=== PATIENT | female | born 2000 | race Caucasian/White ===

== ENCOUNTER 2019-04-24 13:31 | Emergency (ER) | payer OTHER, SELFPAY ==
[2019-04-24 13:55] VITALS: BP 112/74; PULSE 110; RESP 20; TEMP 37.6; O2SAT 100
--- NOTE | 2019-04-24 14:19 | ED.SKABFB ---
HPI - Skin/Abscess/Foreign Bdy General Chief complaint: Skin/Abscess/Foreign Body Stated complaint: Swelling/Numbness bilateral hand Time Seen by Provider: 04/24/19 14:20 Source: patient and RN notes reviewed Mode of arrival: ambulatory Limitations: no limitations History of Present Illness HPI narrative: 18 year old female who presents to [facility] care with complaints of shooting methamphetamine into her left forearm yesterday and stating that she experienced pain immediately to area where she missed vein. Today states that she has some numbness to her fingers on left hand with strong pulse noted to left radial area and brisk capillary refill to finger nailbeds noted. Patient has firm raised area under skin mid left forearm area that is tender to palpation, patient denies any known fevers chills or sweats. Patient states that she was clean for 10 months and then relapsed 2 months ago. Patient states that she is planning on going to [facility] on Saturday for intake evaluation to go back to rehab. MD complaint: abscess/boil Onset (ago): day(s) (1) Location: LUE Exacerbating factors: palpation Context: other (shot methamphetamine into left mid forarm thumb side) Associated symptoms: other Treatments prior to arrival: none Related Data Allergies Allergy/AdvReac Type Severity Reaction Status Date / Time amoxicillin Allergy Mild Rash Verified 04/24/19 14:15 Review of Systems Review of Systems: Narrative: CONSTITUTIONAL: Denies fever, chills, or sweats. EYES: Denies visual changes, redness, or discharge. ENT: Denies rhinorrhea, congestion, sore throat, or otalgia. CARDIOVASCULAR: Denies chest pain, palpitations, or edema. RESPIRATORY: Denies cough or dyspnea. GASTROINTESTINAL: Denies abdominal pain, nausea, vomiting, or diarrhea. GENITOURINARY: Denies dysuria or hematuria. SKIN: Palpable firm nodular area to the left forearm which is tender to palpation where patient injected meth MUSCULOSKELETAL: Denies back pain, joint pain, or myalgia. NEUROLOGIC: Denies headache, numbness, or weakness. PSYCHIATRIC:positive anxiety or depression. All systems reviewed & are unremarkable except as noted in HPI and below PMFSH Past Medical History Medical History (Updated 04/27/19 @ 10:35 by Halina Queen NP) Anxiety Drug abuse and dependence Ear infection Surgical History Surgical History (Updated 04/27/19 @ 10:36 by Halina Queen NP) History of placement of ear tubes Social History Social History (Updated 04/27/19 @ 10:34 by Halina Queen NP) Smoking packs per day: 0.5 Smoking cigarettes per day: 10.0 Years smoked: 5 Smoking pack-years: 2.50 Smoking status: Current every day smoker Tobacco type: cigarettes Substance use: current Substance use type: methamphetamine Living arrangements: with friend(s) Gender identity (if verbalized by the patient): Female Comments At time of signature agree with nursing documentation of medication reconciliation, past medical, surgical, family, and social history. There is no relevant family history pertinent to presenting complaint. Exam Const: General: no acute distress and alert Nutritional Appearance: thin Orientation/consciousness: patient oriented x3 Other: anxious HENMT: Head: normal to inspection Ears: external ears normal, TM's normal bilaterally and EAC's normal General nose exam: Normal nares present and Nasal discharge present (clear) clear Mouth: Yes moist mucous membranes Throat: posterior oropharynx normal Eyes: Conjunctivae: conjunctivae normal Pupils: Equal, round and reactive pupils present EOM: EOMs intact bilaterally Neck: Neck: normal visual inspection and no lymphadenopathy Chest: Chest palpation & inspection: normal inspection of the chest Resp: Effort & Inspection: normal respiratory effort Auscultation: clear to auscultation bilaterally Cardio: Rate: regular rate Rhythm: regular rhythm GI: Auscultation: normal bowel sounds
== END 2019-04-24 14:38 | disposition home or self-care (01) ==
PROVIDERS: Emergency Provider Registered Nurse
DX: L02.414 Cutaneous abscess of left upper limb (principal); F17.210 Nicotine dependence, cigarettes, uncomplicated
CPT/HCPCS: 99213; G0463

== ENCOUNTER 2019-05-28 17:17 | Emergency (ER) | payer OTHER, SELFPAY ==
[2019-05-28 17:55] VITALS: BP 112/71; PULSE 126; RESP 18; TEMP 37.3; O2SAT 100
--- NOTE | 2019-05-28 18:31 | ED.SKABFB ---
HPI - Skin/Abscess/Foreign Bdy General Chief complaint: Skin/Abscess/Foreign Body Stated complaint: Rash Time Seen by Provider: 05/28/19 18:31 Source: patient and RN notes reviewed Mode of arrival: ambulatory Limitations: no limitations History of Present Illness HPI narrative: 18 year old female who presents to express care with complaints of taking Dose of Bactrim last night that was prescribed for her on the 19 of May by ER doctor for abscess to her left upper arm. Patient states that she developed itchng last night of her skin with full blown rash noted on arms, chest, back, and abdomen today. Patient denies any difficulty with swallowing or any problems with her breathing. Patient admits to continued drug use of methamephetamine with last use this morning. Itching last night and hives today reported by patient with no other verbalized complaints, anxious. MD complaint: rash Onset (ago): day(s) (1) Location: generalized Quality: burning Pain Consistency: constant and other (itching) Relieving factors: none Context: recent antibiotic Associated symptoms: itching Treatments prior to arrival: none Related Data Allergies Allergy/AdvReac Type Severity Reaction Status Date / Time amoxicillin Allergy Mild Rash Verified 05/28/19 17:52 Review of Systems Review of Systems: Narrative: CONSTITUTIONAL: Denies fever, chills, or sweats. EYES: Denies visual changes, redness, or discharge. ENT: Denies rhinorrhea, congestion, sore throat, or otalgia. CARDIOVASCULAR: Denies chest pain, palpitations, or edema. RESPIRATORY: Denies cough or dyspnea. GASTROINTESTINAL: Denies abdominal pain, nausea, vomiting, or diarrhea. GENITOURINARY: Denies dysuria or hematuria. SKIN: Scattered urticaria noted on arms, abdomen,back and chest region with itching MUSCULOSKELETAL: Denies back pain, joint pain, or myalgia. NEUROLOGIC: Denies headache, numbness, or weakness. PSYCHIATRIC:Positive anxiety or depression. All systems reviewed & are unremarkable except as noted in HPI and below PMFSH Past Medical History Medical History Anxiety Drug abuse and dependence Ear infection Surgical History Surgical History History of placement of ear tubes Social History Social History Smoking packs per day: 0.5 Smoking cigarettes per day: 10.0 Years smoked: 5 Smoking pack-years: 2.50 Smoking status: Current every day smoker Tobacco type: cigarettes Substance use: current Substance use type: methamphetamine Gender identity (if verbalized by the patient): Female Comments At time of signature, agree with nursing past medical, social history. There is no relevant family history pertinent to the presenting complaint Exam Narrative: Exam Narrative: GENERAL: Well-appearing, fair nourished, and in no acute distress. HEAD: Normocephalic, atraumatic. EYES: PERRLA and EOMI. ENT: Nares clear, no rhinorrhea or epistaxis. Mucous membranes moist. NECK: Supple.no lymphadenopathy CHEST: Clear to auscultation. No respiratory distress.[id number] on room air HEART: Regular rate and rhythm. No murmur heard. Normal peripheral pulses. ABDOMEN: Soft, nontender, nondistended, normal active bowel sounds. EXTREMITIES: Normal range of motion. No edema. SKIN: Warm, dry,scattered urticaria noted to bilateral arms, chest abdomen and back, lesions of various sizes, do manuel,itchy and burn NEURO: No focal deficits. Alert and oriented x3.anxious Course Vital Signs Vital signs: Vital Signs Temperature 37.3 C 05/28/19 17:55 Pulse Rate 126 H 05/28/19 17:55 Respiratory Rate 18 05/28/19 17:55 Blood Pressure 112/71 05/28/19 17:55 Pulse Oximetry 100 05/28/19 17:55 Temperature 37.3 C 05/28/19 17:55 Pulse Rate 126 H 05/28/19 17:55 Respiratory Rate 18 05/28/19 17:55 Blood Pressur
== END 2019-05-28 18:47 | disposition home or self-care (01) ==
PROVIDERS: Emergency Provider Registered Nurse
DX: L50.0 Allergic urticaria (principal); F17.210 Nicotine dependence, cigarettes, uncomplicated
CPT/HCPCS: 99213; G0463

== ENCOUNTER 2020-02-04 17:15 | Emergency (ER) | payer OTHER, SELFPAY ==
[2020-02-04 17:24] VITALS: BP 121/70; PULSE 111; RESP 18; TEMP 36.9; O2SAT 99
--- NOTE | 2020-02-04 17:40 | ED.GENADULT ---
HPI - General Adult General Chief complaint: Urogenital-Female Stated complaint: std test Time Seen by Provider: 02/04/20 17:40 Source: patient Mode of arrival: ambulatory Limitations: no limitations History of Present Illness HPI narrative: 19-year-old female patient presents to the [facility] with complaints of vaginal itching and discharge and concerned about possible STD. Patient states she has had the symptoms for about 3 to 4 weeks now. Patient states that she recently got out of drug rehab about 2 weeks ago. Patient states that she was sexually active with 2 people one of them that she knew well and had a relationship with another one that she did not know well. Patient is currently 5 months and is due in May. Patient has not yet seen an FLOUR WORKER for her . Patient denies any fevers, body aches or chills. Denies any abdominal pain, nausea, vomiting or diarrhea. Patient states she does have pain with urination at times but nothing consistent. Patient states that her biggest complaint is just the severe vaginal itching. Patient also admits to IV drug use while . Patient does admit that she has shared needles with other people. Related Data Home Medications Medication Instructions Recorded Confirmed melatonin 3 mg PO HS PRN 02/04/20 02/04/20 Allergies Allergy/AdvReac Type Severity Reaction Status Date / Time amoxicillin Allergy Mild Rash Verified 05/28/19 17:52 Review of Systems Review of Systems: Narrative: CONSTITUTIONAL: Denies fever, chills, or sweats. EYES: Denies visual changes, redness, or discharge. ENT: Denies rhinorrhea, congestion, sore throat, or otalgia. CARDIOVASCULAR: Denies chest pain, palpitations, or edema. RESPIRATORY: Denies cough or dyspnea. GASTROINTESTINAL: Denies abdominal pain, nausea, vomiting, or diarrhea. GENITOURINARY: Positive dysuria, denies hematuria. Positive vaginal itching and white vaginal discharge SKIN: Denies rash or itching. MUSCULOSKELETAL: Denies back pain, joint pain, or myalgia. NEUROLOGIC: Denies headache, numbness, or weakness. PSYCHIATRIC: Denies anxiety or depression. [facility] Past Medical History Medical History (Updated 02/04/20 @ 17:57 by MAYA Gregorio) Anxiety Drug abuse and dependence Ear infection Surgical History Surgical History History of placement of ear tubes Social History Social History Smoking packs per day: 0.5 Smoking cigarettes per day: 10.0 Years smoked: 5 Smoking pack-years: 2.50 Smoking status: Current every day smoker Tobacco type: cigarettes Substance use: current Substance use type: methamphetamine Gender identity (if verbalized by the patient): Female Comments At the time of my signature I agree with nursing past medical history, surgical, social, and family history. There is no relevant family history pertinent to the presenting complaint. Exam Narrative: Exam Narrative: GENERAL: Well-appearing, well-nourished, and in no acute distress. HEAD: Normocephalic, atraumatic. EYES: PERRLA and EOMI. ENT: Nares clear, no rhinorrhea or epistaxis. Mucous membranes moist. NECK: Supple. No lymphadenopathy CHEST: Clear to auscultation. No respiratory distress. HEART: Regular rate and rhythm. No murmur heard. Normal peripheral pulses. ABDOMEN: Soft, nontender, nondistended, normal active bowel sounds. No CVA tenderness on percussion : Normal external female genitalia. OS is closed. Patient does have some white milky discharge noted to the canal and around the cervix. Vaginal swab was obtained for gonorrhea and chlamydia. No CVA tenderness to percussion. EXTREMITIES: Normal range of motion. No edema. SKIN: Warm, dry, no rash. NEURO: No focal deficits. Alert and oriented x3. Course Vital Signs Vital signs: Vital Signs Temperature 36.9 C 02/04/20 17:24 Pulse Rate 111 H 1
[2020-02-04] MEDS: AZITHROMYCIN 250 MG TABLET 1000 MG PO (18:00)
[2020-02-04] MEDS: cefTRIAXone 250 MG VIAL IM (18:04)
[2020-02-04] MEDS: LIDOCAINE HCL 1% LOCAL INJ 20 ML VIAL IM (18:06)
== END 2020-02-04 18:26 | disposition home or self-care (01) ==
PROVIDERS: Emergency Provider Nurse Practitioner Family
DX: O99.891 Other specified diseases and conditions complicating pregnancy (principal); Z20.2 Contact with and (suspected) exposure to infections with a predominantly sexual mode of transmission; Z3A.00 Weeks of gestation of pregnancy not specified; O99.332 Smoking (tobacco) complicating pregnancy, second trimester; F17.210 Nicotine dependence, cigarettes, uncomplicated
CPT/HCPCS: 81003; 87086; 87491; 87591; 87661; 96372; 99214; A9270; G0463; J0696

== ENCOUNTER 2020-05-03 10:47 | Emergency (ER) | payer OTHER, SELFPAY | END 2020-05-03 10:59 | disposition left against medical advice (07) | LOC: EXPBETH 10:52 | PROVIDERS: Emergency Provider Nurse Practitioner | DX: Z53.21 Procedure and treatment not carried out due to patient leaving prior to being seen by health care provider (principal) | CPT/HCPCS: 99199 ==

== ENCOUNTER 2020-05-16 08:49 | Outpatient (CLI) | payer OTHER, SELFPAY ==
[2020-05-18 07:52] LABS: Amphetamines negative; Barbiturates negative; Benzodiazepines negative; Cocaine Metabolites negative; Marijuana Metabolites negative; PCP negative
== END 2020-05-16 08:50 | disposition home or self-care (01) ==
PROVIDERS: PCP Obstetrics & Gynecology; Visit Provider Obstetrics & Gynecology
DX: F19.11 Other psychoactive substance abuse, in remission (principal)
CPT/HCPCS: 80307

== ENCOUNTER 2020-05-19 10:06 | Observation (INO) | payer OTHER, SELFPAY ==
--- NOTE | ~2020-05-19 | US_ITS ---
EXAMINATION: US OB BPP wo non-stress EXAM DATE: 05/19/2020 16:40 INDICATION: IUGR; BPP earlier today was 2/8 FAILED BPP. 3rd trimester. TECHNIQUE: Pelvic obstetrical transabdominal sonogram was performed by a technologist. There are mu ltiple grayscale and Doppler images available for interpretation. Comparison is made to prior examina tion from earlier same date. FINDINGS: There is a single fetus identified in breech presentation with a heart rate of 133 beats pe r minute. The placenta is located in the anterior position. There is no sonographic evidence of retr oplacental hemorrhage identified. BIOPHYSICAL PROFILE (performed by the technologist) breathing (30 sec sustained breathing in 30 minutes): 2 out of 2 movement (3 gross body movements in 30 minutes): 2 out of 2 tone (one episode of vrhsnoc-gdlktmjfs-lifbxeq limb movement): 2 out of 2 Amniotic fluid pocket (2 cm): 2 out of 2 Total score: 8 out of 8 IMPRESSION: 1. Single fetus, now breech presentation with heart rate of 133 bpm. 2. Normalization of biophysical profile score of 8 out of 8. Reviewed, dictated and finalized at location B. TAB DEALER
[2020-05-19 13:00] VITALS: BMI 28.2
[2020-05-19] MEDS: BETAMETHASONE SOD PHOS/ACETATE 30 MG/5 ML VIAL 12 MG IM (13:17)
[2020-05-19 13:40] VITALS: BP 85/48; PULSE 87
[2020-05-19 13:46] VITALS: BP 91/53; PULSE 89
[2020-05-19 14:01] VITALS: BP 90/46; PULSE 89
[2020-05-19 14:16] VITALS: BP 90/42; PULSE 91
[2020-05-19 15:01] VITALS: BP 85/47; PULSE 82
--- NOTE | 2020-05-23 06:58 | PM.OBTRLD ---
OB - Triage/Final Diagnosis Visit Information Comments/Additional reasons for admission: I have assessed the risk for this patient, Siri Mercer, and determined that she would benefit from observation care. Final Diagnosis (1) IUGR (intrauterine growth restriction): Status: Acute
== END 2020-05-19 16:57 | disposition home or self-care (01) ==
PROVIDERS: Admitting Provider Obstetrics & Gynecology; Visit Provider Obstetrics & Gynecology
DX: O36.5930 Maternal care for other known or suspected poor fetal growth, third trimester, not applicable or unspecified (principal); Z3A.35 35 weeks gestation of pregnancy
CPT/HCPCS: 76819; 96372; G0378; G0379; J0702

== ENCOUNTER 2020-05-20 13:19 | Outpatient (NON) | payer OTHER, SELFPAY ==
[2020-05-20] MEDS: BETAMETHASONE SOD PHOS/ACETATE 30 MG/5 ML VIAL 12 MG IM (13:42)
== END 2020-05-20 13:20 ==
LOC: ANHOBOP 13:20
PROVIDERS: Visit Provider Obstetrics & Gynecology
DX: O36.5990 Maternal care for other known or suspected poor fetal growth, unspecified trimester, not applicable or unspecified (principal); Z3A.00 Weeks of gestation of pregnancy not specified
CPT/HCPCS: J0702

== ENCOUNTER 2020-05-22 17:06 | Observation (INO) | payer OTHER, SELFPAY ==
[2020-05-22 17:29] VITALS: BP 116/68; PULSE 116
[2020-05-22 17:31] VITALS: BP 112/67; PULSE 111
[2020-05-22 17:46] VITALS: BP 107/62; PULSE 102
[2020-05-22 18:01] VITALS: BP 108/58; PULSE 106
[2020-05-22 18:53] LABS: Add Urine Microscopic? YES; Appearance Urine Cloudy (Clear); Bacteria Urine Trace /hpf; Bilirubin Urine Negative (Negative); Blood Urine Negative (Negative); Color Urine Yellow (Yellow); Glucose Urine UA 1+ mg/dL (Negative); Ketones Urine Negative (Negative); Leukocyte Esterase Ur Trace LEU/UL (Negative); Mucus Urine Few /lpf; Nitrate Urine Negative (Negative); Protein Urine Negative (Negative); Specific Grav Ur 1.013 (1.001-1.035); Squamous Epithelial Cell Urine Many /hpf (Few); Urobilinogen Urine Negative mg/dL (<2.0)
[2020-05-22 19:14] VITALS: BMI 28.0
--- NOTE | 2020-05-22 20:19 | OBADM ---
This patient, Siri Mercer, admitted to the OB room [facility] for observation. Patient/family oriented to hospital policies and general routines including ID bracelet, bed and alarms, visiting hours, pain management, procedures, bathroom and other care routines, personal items, smoking policy, room service/diet, and visiting hours. Patient/Family are encouraged to report perceived risks to care and to ask questions if they do not understand what they are told or what they should do.
--- NOTE | 2020-05-23 07:02 | PM.OBTRLD ---
OB - Triage/Final Diagnosis Visit Information Comments/Additional reasons for admission: I have assessed the risk for this patient, Siri Mercer, and determined that she would benefit from observation care. Evaluation Laboratory results: Laboratory Tests 05/22/20 18:32 Urine Color Yellow Urine Appearance Cloudy H Urine pH 6.0 Ur Specific [place] 1.013 Urine Protein Negative Urine Glucose (UA) 1+ H Urine Ketones Negative Ur Blood (Man) Negative Urine Nitrate Negative Urine Bilirubin Negative Urine Urobilinogen Negative Leukocyte Esterase Rfl Trace H Urine RBC 3-5 H Urine WBC 4-6 H Ur Squamous Epith Cells Many H Urine Bacteria Trace Urine Mucus Few H Vital signs: Vital Signs - 24 hr 05/22/20 17:29 05/22/20 17:31 05/22/20 17:46 Pulse Rate 116 H 111 H 102 H Blood Pressure 116/68 112/67 107/62 05/22/20 18:01 Pulse Rate 106 H Blood Pressure 108/58 L Final Diagnosis (1) Pelvic pressure in : Code(s): O26.899 - Other specified related conditions, unspecified trimester; R10.2 - Pelvic and perineal pain Status: Acute
== END 2020-05-22 19:33 | disposition home or self-care (01) ==
PROVIDERS: Admitting Provider Obstetrics & Gynecology; Visit Provider Obstetrics & Gynecology
DX: O26.893 Other specified pregnancy related conditions, third trimester (principal); R10.2 Pelvic and perineal pain; Z3A.35 35 weeks gestation of pregnancy
CPT/HCPCS: 81001; G0378; G0379

== ENCOUNTER 2020-06-08 12:25 | Outpatient (RCR) | payer OTHER, SELFPAY ==
--- NOTE | 2020-05-09 11:54 | PC.NURSE ---
Dr Denney notified of BPP of 08/30, reactive NST and normal Doppler study. OK to dc home and repeat NST and BPP tomorrow.
[2020-05-09 11:59] VITALS: BP 114/58; PULSE 113
[2020-05-10 11:30] VITALS: BP 90/49; PULSE 98
[2020-05-12 11:53] VITALS: BP 108/57; PULSE 103
[2020-05-16 10:38] VITALS: BP 101/52; PULSE 94
--- NOTE | 2020-05-19 12:26 | PM.OBTRLD ---
OB - Triage/Final Diagnosis Visit Information Comments/Additional reasons for admission: I have assessed the risk for this patient, Siri Mercer, and determined that she would benefit from observation care. BPP was performed this morning, which showed 4/10. 2 for fluid and 2 for reactive NST. Breathing, gross body movements, and tone not identified. Bedside BPP was performed by myself. Breathing, at least 3 gross body movements, and tone (flexion and extension of legs) was noted along with >2cm MVP and a reactive NST. Presentation is transverse. head to maternal left, spine posterior. Plan: - Continuous monitoring - Betamethasone IM for lung maturity - Repeat BPP at 1600 today - Clear fluid diet Discussed possibility of delivery due to status, however bedside scan was reassuring. Risks and benefits of delivery discussed with factors of 35 week gestation, IUGR, as well as mode of delivery of section due to transverse lie. Final Diagnosis (1) IUGR (intrauterine growth restriction): Status: Acute
[2020-05-20 13:44] VITALS: BP 105/47; PULSE 96
[2020-05-23 11:46] VITALS: BP 110/53; PULSE 103
[2020-05-30 12:05] VITALS: BP 107/52; PULSE 108
[2020-06-01 12:55] VITALS: BP 109/61; PULSE 110
--- NOTE | ~2020-06-08 | US_ITS ---
EXAMINATION: US OB BPP wo non-stress DATE: 05/10/2020 11:24 MOTION PICTURE SET UP WORKER INDICATION: Small for gestational age TECHNIQUE: Real-time transabdominal obstetric ultrasound. FINDINGS: Comparison to 05/09/2020 There is a single living fetus in breech presentation. The placenta is anterior without placenta pre via. cardiac activity and movement is noted with a heart rate of 131 beats per minute. Biophysical profile: breathin of 2 movement: 2 of 2 tone: 2 of 2 Amniotic flud pocket: 2 of 2 Total score: 8 of 8 IMPRESSION: 1. Single living intrauterine in breech presentation. 2: Total biophysical profile score of 8/8. Reviewed, dictated and finalized at location A. ON PICTURE SET UP WORKER
--- NOTE | ~2020-06-08 | US_ITS ---
EXAMINATION: US OB BPP wo non-stress, US umbilical doppler EXAM DATE: 05/16/2020 10:22 INDICATION: Small for gestational age. 3rd trimester. TECHNIQUE: Pelvic obstetrical transabdominal sonogram was performed by a technologist. There are mu ltiple grayscale and Doppler images available for interpretation. Comparison is made to prior examina tion from 05/12/2020. FINDINGS: There is a single fetus identified in vertex presentation with a heart rate of 134 beats pe r minute. The placenta is located in the anterior position. There is no sonographic evidence of retr oplacental hemorrhage identified. BIOPHYSICAL PROFILE (performed by the technologist) breathing (30 sec sustained breathing in 30 minutes): 2 out of 2 movement (3 gross body movements in 30 minutes): 2 out of 2 tone (one episode of ksftqrx-vqcwbqqqb-fxpkppk limb movement): 2 out of 2 Amniotic fluid pocket (2 cm): 2 out of 2 Total score: 8 out of 8 UMBILICAL ARTERY DOPPLER Systolic/diastolic ratios obtained as follows: Near baby: 2.4 Mid aspect: 2.2 Near Placenta: 2.2 (The 5th -- 95th percentile range is 2.03-3.40 for 35th week gestation age). IMPRESSION: 1. Single fetus with heart rate of 134 bpm. Vertex presentation. 2. Normal biophysical profile score of 8 out of 8. 3. Normal umbilical artery Doppler ratios. Reviewed, dictated and finalized at location B. TOR SERVICE ASSISTANT IMPRESSION: 1. Single fetus with heart rate of 134 bpm. Vertex presentation. 2. Normal biophysical profile score of 8 out of 8. 3. Normal umbilical artery Doppler ratios.
--- NOTE | ~2020-06-08 | US_ITS ---
EXAMINATION: US OB BPP wo non-stress, US umbilical doppler DATE: 05/12/2020 12:01 INDICATION: Intrauterine growth retardation during third trimester of TECHNIQUE: Real-time pelvic ultrasound was performed. The interpreting radiologist was not present fo r the study. COMPARISON: 05/10/2020 FINDINGS: There is a single living fetus in breech presentation. The placenta is anterior and not low-lying. F etal heart rate is 132 beats per minute (bpm). Biophysical profile performed by the technologist: breathing (30 sec sustained breathing in 30 minutes): 2 out of 2 movement (3 gross body movements in 30 minutes): 2 out of 2 tone (one episode of ccsoqli-oxfductll-ikoscxb limb movement): 2 out of 2 Amniotic fluid pocket (2 cm): 2 out of 2 Total score: 8 out of 8 The umbilical artery demonstrates a peak systolic and diastolic velocity ratio of 3.7at the fetus, 2. 7 in the mid cord and 2.7 near the placenta (5th%-95%: 2.07-3.53 at 34 weeks). IMPRESSION: 1. Single living fetus in breech presentation with heart rate of 132 bpm. 2. Biophysical profile 8 out of 8. 3. Normal umbilical artery Doppler systolic to diastolic ratio with mean of 3.03 with range of 2.7-3. 7, (5th%-95%: 2.07-3.53 cm at 34 weeks estimated gestational age). Reviewed, dictated and finalized at location A. DING TANK HELPER IMPRESSION: 1. Single living fetus in breech presentation with heart rate of 132 bpm. 2. Biophysical profile 8 out of 8. 3. Normal umbilical artery Doppler systolic to diastolic ratio with mean of 3.0 3 with range of 2.7-3.7, (5th%-95%: 2.07-3.53 cm at 34 weeks estimated gestatio nal age).
--- NOTE | ~2020-06-08 | US_ITS ---
EXAMINATION: US OB BPP wo non-stress, US umbilical doppler DATE: 05/09/2020 11:31 (accession [id number]), 05/09/2020 11:32 (accession [id number]) INDICATION: Small for gestational age, third trimester TECHNIQUE: Real-time pelvic ultrasound was performed. The interpreting radiologist was not present fo r the study. COMPARISON: 03/04/2021 FINDINGS: There is a single living fetus in breech presentation. The placenta is anterior. heart rate is 144 beats per minute (bpm). Biophysical profile performed by the technologist: breathing (30 sec sustained breathing in 30 minutes): 0 out of 2 movement (3 gross body movements in 30 minutes): 2 out of 2 tone (one episode of weqnkek-kbddkwjfx-hroalnw limb movement): 2 out of 2 Amniotic fluid pocket (2 cm): 2 out of 2 Total score: 6 out of 8 Umbilical artery pulsed Doppler demonstrates peak systolic to end-diastolic velocity ratios (S/D rati os) of 2.8 near the fetus, 2.3 in the mid cord, and 2.4 near the placenta (5th percentile = 2.1, 95th percentile = 3.5). IMPRESSION: 1. Single living fetus in breech presentation. 2. Biophysical profile 6 out of 8. Sustained breathing not observed. 3. Normal umbilical artery Doppler. Reviewed, dictated and finalized at location A. TESTER IMPRESSION: 1. Single living fetus in breech presentation. 2. Biophysical profile 6 out of 8. Sustained breathing not observed. 3. Normal umbilical artery Doppler.
--- NOTE | ~2020-06-08 | US_ITS ---
EXAMINATION: US OB BPP wo non-stress EXAM DATE: 06/01/2020 13:01 INDICATION: Small for gestational age. 3rd trimester. TECHNIQUE: Pelvic obstetrical transabdominal sonogram was performed by a technologist. There are mu ltiple grayscale and Doppler images available for interpretation. Comparison is made to prior examina tion from 05/26/2020. FINDINGS: There is a single fetus identified in vertex presentation with a heart rate of 134 beats pe r minute. The placenta is located in the anterior position. There is no sonographic evidence of retr oplacental hemorrhage identified. BIOPHYSICAL PROFILE (performed by the technologist) breathing (30 sec sustained breathing in 30 minutes): 2 out of 2 movement (3 gross body movements in 30 minutes): 2 out of 2 tone (one episode of ugjarmk-wksnqkozt-ichkmkv limb movement): 2 out of 2 Amniotic fluid pocket (2 cm): 2 out of 2 Total score: 8 out of 8 IMPRESSION: 1. Single fetus with heart rate of 134 bpm. 2. Normal biophysical profile score of 8 out of 8. Reviewed, dictated and finalized at location B. TURNING LATHE OPERATOR
--- NOTE | ~2020-06-08 | US_ITS ---
EXAMINATION: 1. US OB BPP wo non-stress 2. US umbilical doppler DATE: 06/08/2020 13:43 INDICATION: Small for gestational age. TECHNIQUE: Real-time pelvic ultrasound was performed. COMPARISON: Ultrasound 06/01/2020 FINDINGS: There is a single living fetus in vertex presentation. The placenta is anterior. heart rate is 150 beats per minute (bpm). Biophysical profile performed by the technologist: breathing (30 sec sustained breathing in 30 minutes): 2 out of 2 movement (3 gross body movements in 30 minutes): 2 out of 2 tone (one episode of ccoltgs-pkzcokptc-blwlpoe limb movement): 2 out of 2 Amniotic fluid pocket (2 cm): 2 out of 2 Total score: 8 out of 8 Umbilical artery pulsed Doppler demonstrates a peak systolic to end-diastolic velocity ratio (S/D rat io) of 2.7 (5th percentile = 1.94, 95th percentile = 3.18). IMPRESSION: 1. Single living fetus in vertex presentation. 2. Biophysical profile 8 out of 8. 3. Normal umbilical artery Doppler. Reviewed, dictated and finalized at location A. IMPRESSION: 1. Single living fetus in vertex presentation. 2. Biophysical profile 8 out of 8. 3. Normal umbilical artery Doppler.
--- NOTE | ~2020-06-08 | US_ITS ---
EXAMINATION: US OB BPP wo non-stress, US umbilical doppler EXAM DATE: 05/19/2020 11:26 INDICATION: IUGR,biophysical profile, umbilical artery Doppler requested. 3rd trimester. TECHNIQUE: Pelvic obstetrical transabdominal sonogram was performed by a technologist. Umbilical art steve Doppler. There are multiple grayscale and Doppler images available for interpretation. Comparison is made to prior examination from 05/16/2020. FINDINGS: There is a single fetus identified in transverse presentation with a heart rate of 135 beat s per minute. The placenta is located in the anterior position. There is no sonographic evidence of retroplacental hemorrhage identified. There is subjectively expected amount of amniotic fluid. BIOPHYSICAL PROFILE (performed by the technologist) breathing (30 sec sustained breathing in 30 minutes): 0 out of 2 movement (3 gross body movements in 30 minutes): 0 out of 2 tone (one episode of ltlxotq-yuuhnbkpp-tznkgje limb movement): 0 out of 2 Amniotic fluid pocket (2 cm): 2 out of 2 Total score: 2 out of 8 Technologist reported baby demonstrated breathing for about 5, not 30 seconds, and one movement not 3 . UMBILICAL ARTERY DOPPLER Systolic/diastolic ratios obtained as follows: Near baby: 2.8 Mid aspect: 2.4 Near Placenta: 2.2 (The 5th -- 95th percentile range is 2.0 -- 3.4). IMPRESSION: 1. Single fetus, now transverse presentation, with heart rate of 135 bpm. 2. Abnormal BPS 2/8. 3. Normal umbilical artery Doppler ratios. I discussed change in position, abnormal BPS with Raf Denney DO at 05/19/2020 11:35 ACUTE CARE ASSISTANT. Reviewed, dictated and finalized at location B. E CARE ASSISTANT IMPRESSION: 1. Single fetus, now transverse presentation, with heart rate of 135 bpm. 2. Abnormal BPS 2/8. 3. Normal umbilical artery Doppler ratios. I discussed change in position, abnormal BPS with Raf Denney DO at 2/2 07/2020 11:35 ACUTE CARE ASSISTANT. IMPRESSION: 1. Single fetus, now transverse presentation, with heart rate of 135 bpm. 2. Abnormal BPS 05/02. 3. Normal umbilical artery Doppler ratios. I discussed change in position, abnormal BPS with Raf Denney DO at 04/26 11:35 ACUTE CARE ASSISTANT.
--- NOTE | ~2020-06-08 | US_ITS ---
EXAMINATION: US OB BPP wo non-stress EXAM DATE: 05/26/2020 12:02 INDICATION: SGA. 3rd trimester. TECHNIQUE: Pelvic obstetrical transabdominal sonogram was performed by a technologist. There are mu ltiple grayscale and Doppler images available for interpretation. Comparison is made to prior examina tion from 05/19/2020. FINDINGS: There is a single fetus identified in vertex presentation (was breech on prior study) with a heart rate of 142 beats per minute. The placenta is located in the anterior position. There is no sonographic evidence of retroplacental hemorrhage identified. BIOPHYSICAL PROFILE (performed by the technologist) breathing (30 sec sustained breathing in 30 minutes): 2 out of 2 movement (3 gross body movements in 30 minutes): 2 out of 2 tone (one episode of zpkkfio-rxhxoktrb-vkhjymp limb movement): 2 out of 2 Amniotic fluid pocket (2 cm): 2 out of 2 Total score: 8 out of 8 IMPRESSION: 1. Single fetus, now vertex presentation with heart rate of 142 bpm. 2. Normal biophysical profile score of 8 out of 8. Reviewed, dictated and finalized at location A. ROP SYSTEMS TECHNICIAN
--- NOTE | ~2020-06-08 | US_ITS ---
EXAMINATION: US OB BPP wo non-stress, US umbilical doppler DATE: 05/05/2020 13:17 DIGITAL MEDIA BUYER INDICATION: Small for gestational age TECHNIQUE: Real-time transabdominal obstetric ultrasound. FINDINGS: No prior studies for comparison. There is a single living fetus in transverse presentation. The placenta is anterior without placenta previa. cardiac activity and movement is noted with a heart rate of 139 beats per minute. Biophysical profile: breathin of 2 movement: 2 of 2 tone: 2 of 2 Amniotic flud pocket: 2 of 2 Total score: 8 of 8 Umbilical artery pulsed Doppler demonstrates peak systolic to end-diastolic velocity ratios (S/D rati os) of 2.8 near the fetus, 4.5 in the mid cord, and 5 near the placenta (5th percentile = 2.11, 95th percentile = 3.67). IMPRESSION: 1. Single living intrauterine in transverse presentation. 2: Total biophysical profile score of 8/8. 3: Elevated umbilical systolic/diastolic velocity ratios. Reviewed, dictated and finalized at location B. TAL MEDIA BUYER IMPRESSION: 1. Single living intrauterine in transverse presentation. 2: Total biophysical profile score of 8/8. 3: Elevated umbilical systolic/diastolic velocity ratios.
[2020-06-08 14:00] VITALS: BP 106/62; PULSE 115
== END 2020-06-24 15:23 | disposition home or self-care (01) ==
LOC: ANHOBOP 12:25
PROVIDERS: Visit Provider Obstetrics & Gynecology
DX: O36.5930 Maternal care for other known or suspected poor fetal growth, third trimester, not applicable or unspecified (principal); Z3A.33 33 weeks gestation of pregnancy; Z3A.34 34 weeks gestation of pregnancy; O36.0930 Maternal care for other rhesus isoimmunization, third trimester, not applicable or unspecified; Z3A.35 35 weeks gestation of pregnancy; Z3A.36 36 weeks gestation of pregnancy
CPT/HCPCS: 59025; 76819; 76820; J0702

== ENCOUNTER 2020-06-16 00:01 | Inpatient (IN) | payer OTHER, SELFPAY ==
[2020-06-16] VITALS (151 sets, daily range): BP systolic 79–124; BP diastolic 27–79; PULSE 51–137; RESP 18–20; TEMP 36.5–38.5; O2SAT 86–100; BMI 28.0
--- NOTE | 2020-06-16 01:02 | WPDANESEPP ---
Anes - Eval Pre Procedure Procedure: labor epidural Date/Time: 06/16/20 01:02 Surgeon: Олег Pre Op Diagnosis: IOL Patient Data Age: 19 Gender: F Height: Weight: Allergies Allergy/AdvReac Type Severity Reaction Status Date / Time amoxicillin Allergy Mild Rash Verified 05/28/19 17:52 Home Medications Medication Instructions Recorded Confirmed Type PNV #[id number] acid-dha 1 cap PO DAILY 30 Days #30 cap 02/04/20 06/08/20 Rx Patient hx anesthesia problems: none Family hx anesthesia problems: none PMFSH Past Medical History Medical History (Updated 05/23/20 @ 07:02 by Raf Denney DO) Anxiety Drug abuse and dependence Ear infection Surgical History Surgical History History of placement of ear tubes Social History Social History Smoking packs per day: 0.5 Smoking cigarettes per day: 10.0 Years smoked: 5 Smoking pack-years: 2.50 Smoking status: Current every day smoker Tobacco type: cigarettes Substance use: former Substance use type: methamphetamine Other substance usage details: Clean since December 2019 Gender identity (if verbalized by the patient): Female Spiritual care concerns: No Exam Day of Procedure 06/16/20 01:02
[2020-06-16 01:12] LABS: Basophils Absolute Auto 0.1 K/mm3 (0.0-0.1); Basophils Percent Auto 0.6 % (0.2-1.2); Eosinophils Absolute Auto 0.1 K/mm3 (0-0.3); Hematocrit 34.8 % (37.0-47.0); Immature Granulocyte Absolute 0.31 K/mm3 (0.00-0.031); Immature Granulocyte Percent A 2.6 % (0-0.5); Lymphocytes Absolute Auto 3.38 K/mm3 (0.9-3.2); Mean Corpuscular HGB Conc 34.5 g/dl (32-36); Mean Corpuscular Hemoglobin 32.1 pg (26-34); Mean Platelet Volume 10.7 fl (7.4-10.4); Monocytes Absolute Auto 1.1 K/mm3 (0.1-0.6); Monocytes Percent Auto 9.4 % (2.6-8.5); Neutrophils Percent Auto 58.4 % (45.5-73.1); Platelet Count Result 230 k/mm3 (150-375); Red Blood Count 3.74 M/mm3 (4.2-5.4); Red Cell Distribution Width 13.2 % (11.5-14.5); White Blood Count 12.1 K/mm3 (4.5-10.0)
[2020-06-16] MEDS: DINOPROSTONE 10 MG VAG INSERT VAGINAL (01:33)
--- NOTE | 2020-06-16 04:53 | LDADM ---
This patient, Siri Mercer, was admitted to Labor/Delivery/Recovery 107 on 06/16/20 at 00:01. Plans for labor, pain management and were discussed with patient. Patient/family oriented to hospital policies and general routines including ID bracelet, bed and alarms, visiting hours, pain management, procedures, bathroom and other care routines, personal items, smoking policy, room service/diet and guest tray routines, security routines, and visiting hours. Patient/Family are encouraged to report perceived risks to care and to ask questions if they do not understand what they are told or what they should do. See OBIX for further documentation.
[2020-06-16 07:09] LABS: Rapid Plasma Reagin Non-Reactive (NonReactive)
[2020-06-16 10:26] LABS: Amphetamine Screen Urine Negative (Negative); Barbiturate Screen Urine Negative (Negative); Benzodiazepines Screen Urine Negative (Negative); Cannabinoid Screen Urine Negative (Negative); Cocaine Screen Urine Negative (Negative); Methadone Screen Urine Negative (Negative); Opiate Screen Urine Negative (Negative); Phencyclidine Screen Urine Negative (Negative)
--- NOTE | 2020-06-16 12:24 | PM.IMHP ---
H&P: HPI History of Present Illness Date/Time: 06/16/20 12:24 19yo at 39w0d here for induction of labor secondary to IUGR. She states she is starting to feel some cramping contractions. But otherwise is doing well. Chief Complaint: Scheduled induction of labor Review of Systems Constitutional: Constitutional: Reports no additional constitutional complaints Cardiovascular: Cardiovascular: Reports no additional cardiovascular complaints Respiratory: Respiratory: Reports no additional respiratory complaints Gastrointestinal: Gastrointestinal: Reports no additional gastrointestinal complaints Genitourinary: Genitourinary: Reports no additional female genitourinary complaints Musculoskeletal: Musculoskeletal: Reports no additional musculoskeletal complaints Integumentary/Breasts: Skin/Breast: Reports system reviewed and no additional complaints, except as docu Neurologic: Reports system reviewed and no additional complaints, except as documented Psychiatric: Psychiatric: Reports no additional psychiatric complaints Endocrine: Endocrine: Reports no additional endocrine complaints Hematologic/Lymphatic: Hematologic/Lymphatic: Reports no additional hematologic/lymphatic complaints Allergic/Immunologic: Allergic/Immunologic: Reports no additional allergic/immunologic complaints [facility] Past Medical History Medical History (Updated 06/16/20 @ 12:31 by Raf Denney DO) Anxiety Drug abuse and dependence Ear infection Surgical History Surgical History History of placement of ear tubes Social History Social History Smoking packs per day: 0.5 Smoking cigarettes per day: 10.0 Years smoked: 6 Smoking pack-years: 3.00 Smoking status: Current every day smoker Tobacco type: cigarettes Substance use: former Substance use type: methamphetamine Other substance usage details: Clean since December 2019 Gender identity (if verbalized by the patient): Female Spiritual care concerns: No Meds Home Medications and Allergies Home Medications Medication Instructions Recorded Confirmed Type PNV #[id number] acid-dha 1 cap PO DAILY 30 Days #30 cap 02/04/20 06/08/20 Rx Allergies Allergy/AdvReac Type Severity Reaction Status Date / Time amoxicillin Allergy Mild Rash Verified 05/28/19 17:52 Vital Signs Vital Signs - 24 hr 06/16/20 01:49 06/16/20 02:00 06/16/20 02:30 Temperature Pulse Rate 82 78 80 Blood Pressure 98/54 L 88/41 L 93/50 L 06/16/20 03:00 06/16/20 03:30 06/16/20 04:00 Temperature Pulse Rate 82 85 85 Blood Pressure 95/48 L 90/45 L 99/51 L 06/16/20 04:30 06/16/20 09:00 06/16/20 09:06 Temperature 36.6 C Pulse Rate 85 94 Blood Pressure 95/55 L 94/51 L 06/16/20 11:53 06/16/20 12:00 06/16/20 12:15 Temperature Pulse Rate 95 92 102 H Blood Pressure 110/64 109/61 92/51 L Exam Const: General: cooperative, healthy appearing, comfortable, no acute distress, well developed, alert, awake and Physically active; No acute distress HENMT: Head: normocephalic and atraumatic Resp: Effort & Inspection: normal respiratory effort, able to speak in complete sentences, abnormal respiratory pattern and audible wheezes Cardio: Rate: regular rate GI: Inspection: normal to inspection : Manual OB Exam: dilated fingertip, effaced 50% and station high Neuro: General: oriented to person, oriented to place, oriented to time and patient oriented x3 Psych: Appearance: grossly normal Mental Status: mental status grossly normal Speech and movement: Normal speech and movement present Affect: normal affect Attitude: cooperative Thought process: Normal thought process present Thought content: Yes Normal thought content present Insight: Good insight present (Psych) Judgement: Good judgement present (Psych) H&P: Results Labs Labs: Short CBC 06/16
--- NOTE | 2020-06-16 12:32 | WPDHPUPDATE1 ---
History and Physical Update Update Date/Time: 06/16/20 12:32 History and Physical has been reviewed, including an updated exam of the patient. There are NO changes in the patient's condition. Risks, benefits, and alternatives have been discussed and questions answered. Patient agrees to proceed with procedure.
[2020-06-16] MEDS: OXYTOCIN 30 UNITS/NS 500 ML 30 UNITS/500 ML BAG IV CONT (14:08)
[2020-06-16] MEDS: LACTATED RINGERS 1,000 ML 125 ML IV CONT ×2 (14:08→19:37)
--- NOTE | 2020-06-16 17:09 | PM.OBPNVD ---
OB - PN: Subj Subjective Date/time seen: 06/16/20 17:10 Doing well, starting to feel more contractions with pitocin. OB - PN: Obj Data Labs CBC & Chem 7: 06/16/20 00:43 Labs: Laboratory Results - last 24 hr 06/16/20 06/16/20 06/16/20 00:43 00:43 00:43 WBC 12.1 H RBC 3.74 L Hgb 12.0 Hct 34.8 L MCV 93.0 MCH 32.1 MCHC 34.5 RDW 13.2 Plt Count 230 MPV 10.7 H Immature Gran % (Auto) 2.6 H Neut % (Auto) 58.4 Lymph % (Auto) 28.0 [place] % (Auto) 9.4 H Eos % (Auto) 1.0 Baso % (Auto) 0.6 Lymph # (Auto) 3.38 H [place] # (Auto) 1.1 H Eos # (Auto) 0.1 Baso # (Auto) 0.1 Abs Immat Gran (auto) 0.31 H Absolute Neuts (auto) 7.0 H Absolute Nucleated RBC 0.0 Nucleated RBC % 0.0 Urine Opiates Screen Urine Methadone Screen Ur Barbiturates Screen Ur Phencyclidine Scrn Ur Amphetamine Screen U Benzodiazepines Scrn Urine Cocaine Screen U Cannabinoids Screen RPR Non-reactive Blood Type B Positive Antibody Screen Negative 06/16/20 04:58 WBC RBC Hgb Hct MCV MCH MCHC RDW Plt Count MPV Immature Gran % (Auto) Neut % (Auto) Lymph % (Auto) [place] % (Auto) Eos % (Auto) Baso % (Auto) Lymph # (Auto) [place] # (Auto) Eos # (Auto) Baso # (Auto) Abs Immat Gran (auto) Absolute Neuts (auto) Absolute Nucleated RBC Nucleated RBC % Urine Opiates Screen Negative Urine Methadone Screen Negative Ur Barbiturates Screen Negative Ur Phencyclidine Scrn Negative Ur Amphetamine Screen Negative U Benzodiazepines Scrn Negative Urine Cocaine Screen Negative U Cannabinoids Screen Negative RPR Blood Type Antibody Screen OB - PN A/P Assessment and Plan (1) IUGR (intrauterine growth restriction): Status: Acute Assessment and Plan: AROM clear fluid Continue pitocin per protocol Pain management as requested (2) Term : Code(s): Z34.90 - Encounter for supervision of normal , unspecified, unspecified trimester Status: Acute Time Spent With Patient Time: Total time spent is greater than 50% in coordination of care (as documented) at patient's floor/unit and/or counseling patient: Exam : Manual OB Exam: dilated 2 cm (2-3cm), effaced 50% and station (-3) Amniotic Fluid: clear
--- NOTE | 2020-06-16 23:14 | PM.OBPRVD ---
OB - Delivery Note Procedure Delivery date: 06/16/20 Procedure: Normal spontaneous vaginal delivery Intrapartal events: None Induction method: AROM, per pitocin protocol and per cervidil protocol Delivery augmentation: rupture of membranes and pitocin Delivery monitor: external FHT and external uterine Route of delivery: Laceration Description: Perineal - 1st Degree (no repair needed) Specimen: Yes Quantitative Blood Loss (ml): 100 Anesthesia type: Epidural Disposition: floor Narrative: Once she was noted to be complete and ready to push, the labor bed was broken down and legs were placed in stirrups for support. With contractions and maternal efforts, the presented in OP position. The head was delivered. Checked for nuchal cord, nuchal cord x3 noted and reduced . Gentle downward traction was applied and the anterior shoulder delivered without issues, followed by the posterior shoulder and rest of the body. was vigorous and crying, so delayed cord clamping of approximately 1 minute was performed. The cord was clamped and cut. Cord gasses collected. Placenta was delivered spontaneously. IV oxytocin administered and fundal massage applied. Exam was performed to identify any lacerations. Small 1st degree perineal laceration was noted, but hemostatic and thus no repair was needed. repaired with 2-0 Vicryl. Patient tolerated the procedure well. All instrument and sponge counts were correct at the end of the procedure. Baby Date of : 06/16/20 Time of : 22:59 Weeks of gestation at delivery: 39 Infant gender: Female Weight (pounds): 5 Weight (ounces): 15 presentation: vertex position: Right Occiput Posterior Placenta delivery description: Spontaneous cord vessel description: 3 Vessels and Nuchal Cord (x3) score one minute: 9 score five minutes: 9
[2020-06-16] MEDS: OXYTOCIN 30 UNITS/NS 500 ML 30 UNITS/500 ML BAG 125 UNITS IV CONT (23:32)
[2020-06-16] MEDS: ONDANSETRON INJ 4 MG/2 ML VIAL IV PUSH (23:54)
[2020-06-17] VITALS (23 sets, daily range): BP systolic 93–112; BP diastolic 45–71; PULSE 68–115; RESP 16–18; TEMP 36.3–37.5; O2SAT 97–100
[2020-06-17] MEDS: IBUPROFEN 600 MG TABLET PO ×3 (01:45→16:52)
[2020-06-17] MEDS: ACETAMINOPHEN 325 MG TABLET 650 MG PO ×2 (03:15→12:03)
[2020-06-17 03:22] LABS: Hemoglobin 11.7 g/dL (12.0-15.0)
--- NOTE | 2020-06-17 07:37 | WPDANLDPN2 ---
Anes-Prog Note L&D Date/Time: 06/17/20 07:37 Comfortable throughout: labor and delivery Neuraxial method: epidural Epidural/Spinal procedure site: clean & non-tender Neuro status: Neuro function grossly intact. Cardiovascular status: normal Respiratory status: normal Airway patency: baseline Mental status: baseline Post-Op hydration status: normal Vital Signs: Last Vital Signs Temp 36.4 C 06/17/20 03:21 Pulse 96 06/17/20 03:21 Resp 16 06/17/20 03:21 BP 93/50 L 06/17/20 03:21 Pulse Ox 97 06/17/20 03:21 Pain score (VAS): 0 I/O: Intake & Output 06/16/20 06/16/20 06/17/20 15:59 23:59 07:59 Intake Total 1500 Output Total 100 Balance 1400 Post-procedural complaints: none Patient feedback: Patient satisfied with anesthetic care.
[2020-06-17] MEDS: MULTIVIT/MIN/PREN/FOL AC/IRON TABLET 1 TAB PO (08:54)
--- NOTE | 2020-06-17 09:44 | P.PNOB_ITS ---
OB - PN: Subj Subjective Date/time seen: 06/17/20 09:44 19yo s/p on 06/16. Doing well this morning. Pain is well controlled. Lochia is minimal. Breast and bottle feeding. Ambulating. OB - PN: Obj Data Labs CBC & Chem 7: 06/17/20 03:11 Labs: Laboratory Results - last 24 hr 06/16/20 06/17/20 04:58 03:11 Hgb 11.7 L Hct 34.0 L Urine Opiates Screen Negative Urine Methadone Screen Negative Ur Barbiturates Screen Negative Ur Phencyclidine Scrn Negative Ur Amphetamine Screen Negative U Benzodiazepines Scrn Negative Urine Cocaine Screen Negative U Cannabinoids Screen Negative OB - PN A/P Assessment and Plan (1) (normal spontaneous vaginal delivery): Code(s): O80 - Encounter for full-term uncomplicated delivery Status: Acute Assessment and Plan: Routine care Pain management Ambulate DC home tomorrow 06/18 Time Spent With Patient Time: Total time spent is greater than 50% in coordination of care (as do cumented) at patient's floor/unit and/or counseling patient: Exam Const: General: cooperative, healthy appearing, comfortable, no acute distress, alert, awake and Physically active Resp: Effort & Inspection: normal respiratory effort, able to speak in complete sentences, no audible wheezes, no cough, respiratory effort not decreased and not labored Cardio: Rate: regular rate GI: GI Palp: No abdominal tenderness, Yes Soft to palpation, No Tenderness to palpation present (GI) and No Guarding due to palpation present (GI) Other: fundus firm below umbilicus Neuro: General: oriented to person, oriented to place and oriented to time Psych: Appearance: grossly normal Mental Status: mental status grossly normal Affect: normal affect Attitude: cooperative Thought process: Normal thought process present Thought content: Yes Normal thought content present Insight: Good insight present (Psych) Judgement: Good judgement present (Psych)
--- NOTE | 2020-06-17 09:58 | PM.OBDSVD ---
DS: Admitting Diagnosis Admitting Diagnosis Admitting Diagnosis: IUGR Term DS: Discharge Diagnosis Discharge Diagnosis (1) (normal spontaneous vaginal delivery): Code(s): O80 - Encounter for full-term uncomplicated delivery Status: Acute Assessment and Plan: Routine care Pain management Ambulate DC home tomorrow 06/18 OB - DS: Summary OB Procedures : None OB Procedures Intrapartum: Spontaneous Vag Delivery OB Procedures: : None Time Spent with Patient Time attestation: Total time spent providing and/or coordinating discharge services: Exam Const: General: cooperative, healthy appearing, comfortable, no acute distress, well developed, alert, awake and Physically active; No acute distress Orientation/consciousness: oriented to person, oriented to place, oriented to time and patient oriented x3 HENMT: Head: normocephalic and atraumatic Resp: Effort & Inspection: normal respiratory effort, able to speak in complete sentences, abnormal respiratory pattern, no audible wheezes, no cough, respiratory effort not decreased and not labored Cardio: Rate: regular rate GI: Inspection: normal to inspection Other: fundus firm below umbilicus Neuro: General: oriented to person, oriented to place, oriented to time and patient oriented x3 Psych: Appearance: grossly normal Mental Status: mental status grossly normal Speech and movement: Normal speech and movement present Affect: normal affect Attitude: cooperative Thought process: Normal thought process present Insight: Good insight present (Psych) Judgement: Good judgement present (Psych) DS: Data Data Completed and Pending Pending studies at discharge: Pending at discharge 06/17/20 00:46 Surgical [PTH] Routine Labs on day of discharge: Labs from last 24 hours 06/17/20 06/16/20 03:11 04:58 Hgb 11.7 L Hct 34.0 L Urine Opiates Screen Negative Urine Methadone Screen Negative Ur Barbiturates Screen Negative Ur Phencyclidine Scrn Negative Ur Amphetamine Screen Negative U Benzodiazepines Scrn Negative Urine Cocaine Screen Negative U Cannabinoids Screen Negative Discharge Plan Discharge Attending physician on discharge: Raf Denney Consulting providers: Chris Ricardo Discharging Clinician: Raf Denney Patient Disposition: Home, Self-Care Activity: may shower, no straining and pelvic rest Diet: regular Patient Instructions: Antibiotic Form, How to Stop Smoking (GEN), Cigarette Smoking and Your Health (GEN), Secondhand Smoke Exposure in Children (GEN) Stand Alone Forms: General Discharge Information Follow-up/Referrals: Raf Denney, [Physician] - Discharge Medications: New docusate sodium 100 mg Capsule 100 mg PO BID PRN (Reason: Constipation) Qty: 30 RF: 0 ibuprofen 600 mg Tablet 600 mg PO Q6H PRN (Reason: Cramping) Qty: 90 RF: 0 Continued PNV #[id number] acid-dha 35 mg iron-5 mg iron-1 mg capsule 1 cap PO DAILY 30 Days Qty: 30 RF: 0 Date of admission: 06/16/20 00:01 Primary Care Provider: PHYSICIAN,COCOA POWDER MIXER OPERATOR Admitting Provider: Raf Denney Attending physician on admission: Raf Denney Condition: Stable
--- NOTE | 2020-06-17 12:30 | PCCCNOTE ---
Care Coordination. Pt. referred to Care Coordination for history of drug use. Spoke with pt. and FOB at bedside. Pt. lives with her parents and her almost 2 years old son. She reports her mother has custody of son due to her previous meth use. Pt. reports she went to [facility] drug rehab in 2019. She reports not completing program, but hasn't used meth since. Gerri BEVERLY reports 2 negative drug tests from office and negative drug test here on admission for pt. Baby was not tested. Pt. and FOB report they are doing much better and both staying clean. Pt. reports having all necessary baby care items. She has breast pump and is setup with [facility] in [place]. FOB recently out of [facility] and on probation. He reports only a few more visits and he'll be done. Spoke with Hattie Stark from [facility] Hotline ID#[id number] who reports will take pt.'s situation as information only. She reports if something changes, they will notify us if they plan to take a report, but at this time no action needed. Gerri BEVERLY, aware.
--- NOTE | 2020-06-17 13:50 | PC.NURSE ---
Consult with pt., mother reports she plans to pump and bottle feed. Mother attempted to breastfeed with first child and states she did not like and wants to have breastmilk. Mother states pumps at times and plans to begin to pump regularly once home. Discussed stimulation and milk supply. Mother has the [facility] pump at bedside. Reviewed Instructions on breast pump care and usage, pumping schedule, nipple care, and collection and storage of breast milk. Encouraged [id number], breast massage and manual expression to stimulate supply. Assessed patient for correct flange size, placement and draw. Mother choose not to pump. Patient verbalizes and demonstrates understanding of instructions.
--- NOTE | 2020-06-17 13:55 | PC.NURSE ---
Mother reports she has a double electric breastpump for home use.
[2020-06-18] MEDS: IBUPROFEN 600 MG TABLET PO ×2 (00:30→07:55)
[2020-06-18] MEDS: MULTIVIT/MIN/PREN/FOL AC/IRON TABLET 1 TAB PO (07:54)
[2020-06-18] MEDS: DOCUSATE SODIUM 100 MG CAPSULE PO (07:54)
[2020-06-18 08:00] VITALS: BP 120/73; PULSE 71; RESP 18; TEMP 37.1
--- NOTE | 2020-06-18 08:15 | PC.NURSE ---
Patient was given the opportunity to view the discharge video Mother & Baby Care, The First Two Weeks and to ask questions. Patient declined viewing the video and has been given the mother/baby guide for home reference.
--- NOTE | 2020-06-18 08:15 | PC.NURSE ---
Self care and infant care dishcharge instructions given including follow up visit date and time. Parents verbalized understanding. No questions or concerns voiced.
== END 2020-06-18 11:52 | disposition home or self-care (01) | DRG 560 ==
LOC: ANHLDR 14:44 → ANHOB2 06-17 01:42
PROVIDERS: Admitting Provider Obstetrics & Gynecology; Visit Provider Obstetrics & Gynecology
DX: O36.5930 Maternal care for other known or suspected poor fetal growth, third trimester, not applicable or unspecified (principal); Z37.0 Single live birth; Z3A.39 39 weeks gestation of pregnancy; O36.8330 Maternal care for abnormalities of the fetal heart rate or rhythm, third trimester, not applicable or unspecified; O70.0 First degree perineal laceration during delivery; O99.334 Smoking (tobacco) complicating childbirth; F17.210 Nicotine dependence, cigarettes, uncomplicated; O99.344 Other mental disorders complicating childbirth; F41.9 Anxiety disorder, unspecified
CPT/HCPCS: 36415; 80307; 85014; 85018; 85025; 86592; 86850; 86900; 86901; 88307; A9270; J2405; J2590; J2795; J7120

== ENCOUNTER 2021-12-14 13:12 | Emergency (ER) | payer OTHER, SELFPAY ==
[2021-12-14 13:17] VITALS: BP 103/60; PULSE 96; RESP 16; TEMP 37.2; O2SAT 98
--- NOTE | 2021-12-14 13:24 | ED.URI ---
HPI - URI/Sore Throat General Chief Complaint: Upper Respiratory Infection Stated Complaint: sore throat head pressure stuffy nose cough Time Seen by Provider: 12/14/21 13:24 Source: patient and RN notes reviewed History of Present Illness HPI Narrative: Patient is a 21-year-old female who presents to the urgent care with complaints of sore throat, stuffy nose, congestion, cough, head pressure and headache. Patient states she has had chills and sweats but denies any known fevers. Denies nausea or vomiting. States that her symptoms started 3 days ago and she has been taking Benadryl. No other acute complaints. No acute distress noted. Patient read the plan of care. Some parts of this dictation were generated by voice recognition software and may contain typographical and/or grammatical inaccuracies. Related Data Allergies Allergy/AdvReac Type Severity Reaction Status Date / Time amoxicillin Allergy Mild Rash Verified 12/14/21 13:23 Review of Systems Review of Systems: CONSTITUTIONAL: Reports of chills, sweats EYES: Denies visual changes, redness, or discharge. ENT: Reports of rhinorrhea, congestion, sore throat CARDIOVASCULAR: Denies chest pain, palpitations, or edema. RESPIRATORY: Reports of cough without dyspnea GASTROINTESTINAL: Denies abdominal pain, nausea, vomiting, or diarrhea. GENITOURINARY: Denies dysuria or hematuria. SKIN: Denies rash or itching. MUSCULOSKELETAL: Denies back pain, joint pain, or myalgia. NEUROLOGIC: Denies headache, numbness, or weakness. All other systems reviewed are negative, except as documented in HPI. [facility] Past Medical History Medical History (Updated 12/14/21 @ 13:42 by MAYA Kwong) Anxiety Drug abuse and dependence Ear infection Surgical History Surgical History History of placement of ear tubes Social History Social History Smoking packs per day: 0.5 Smoking cigarettes per day: 10.0 Years smoked: 6 Smoking pack-years: 3.00 Smoking status: Current every day smoker Tobacco type: cigarettes Substance use: current Substance use type: methamphetamine Other substance usage details: Clean since December 2019 Gender identity (if verbalized by the patient): Female Spiritual care concerns: No Comments At the time of my signature, I reviewed and agree with the nursing past medical, surgical, social, and family history. There is no relevant family history pertinent to the patient complaint. Exam Narrative: GENERAL: This is a well-nourished, well-developed patient, in no apparent distress. HEAD: normocephalic, atraumatic. EYES: PERRL. Sclera clear/white. Vision is grossly intact. EARS: External ears normal, auditory canals clear and without drainage, TMs normal without perforation. Hearing grossly intact. NOSE: External nose normal with no obvious nasal discharge, nares without redness, no rhinorrhea. THROAT: Mucous membranes moist. Mild erythema noted posterior pharynx with mild bilateral tonsillar edema without exudate or ulceration. Moderate postnasal drainage NECK: Neck supple, non-tender without lymphadenopathy CARDIOVASCULAR: Regular rate and rhythm without murmurs, gallops, or rubs. RESPIRATORY: Mild cough noted on exam. Clear to auscultation. Breath sounds equal bilaterally. No wheezes, rales, or rhonchi. SKIN: warm, intact with no suspicious lesions or rash, good texture and turgor. NEURO: awake, alert, and oriented to person, place and time. There were no obvious focal neurologic abnormalities. EXTREMITIES: No clubbing, cyanosis, or edema. Course Course Level of Care: Express Care Visit Vital Signs Vital signs: Vital Signs Temperature 99.0 F 12/14/21 13:17 Pulse Rate 96 12/14/21 13:17 Respiratory Rate 16 12/14/21 13:17 Blood Pressure 103/60 12/14/21 13:17 Pulse Oximetry 98 12/14/21 13:17 Oxygen Delivery Room
== END 2021-12-14 13:50 | disposition home or self-care (01) ==
PROVIDERS: Emergency Provider Nurse Practitioner Family
DX: J02.0 Streptococcal pharyngitis (principal); F17.210 Nicotine dependence, cigarettes, uncomplicated; F41.9 Anxiety disorder, unspecified
CPT/HCPCS: 87880; 99213; G0463

== ENCOUNTER 2022-03-25 15:14 | Emergency (ER) | payer OTHER, SELFPAY ==
[2022-03-25 15:19] VITALS: BP 123/65; PULSE 88; RESP 20; TEMP 37.2; O2SAT 98
--- NOTE | 2022-03-25 16:16 | ED.EAR ---
HPI - Ear Problem General Chief complaint: Ear Stated complaint: Ear Problem Time Seen by Provider: 03/25/22 16:16 Source: patient Mode of arrival: ambulatory Limitations: no limitations History of Present Illness HPI Narrative: 21 year old female who presents to [facility] care with complaints of right ear pain for one week duration states that she can't hear from her ears Ear pain patient reports is intermittent, denies any known fevers, chills or swets, denies any nasal congestion or any cough. Patient reports that she has past history of excessive cerumen and ear infections. MD Complaint: ear pain and decreased hearing Location: right ear Treatment prior to arrival: none Related Data Allergies Allergy/AdvReac Type Severity Reaction Status Date / Time amoxicillin Allergy Mild Rash Verified 03/25/22 15:36 Review of Systems Review of Systems: CONSTITUTIONAL: Denies malaise, chills, sweats, or fever. EYES: Denies visual changes, redness, or discharge. ENT:Denies any rhinorrhea, congestion, sinus pain,positive for right otalgia denies sore throat. CARDIOVASCULAR: Denies chest pain, palpitations, or edema. RESPIRATORY: Denies cough.? Denies dyspnea. GASTROINTESTINAL: Denies abdominal pain, nausea, vomiting, diarrhea SKIN: Denies rash or itching. MUSCULOSKELETAL: Denies myalgia. NEUROLOGIC: Denies headache. All systems reviewed & are unremarkable except as noted in HPI and below PMFSH Past Medical History Medical History (Updated 04/01/22 @ 22:38 by Halina Queen NP) Anxiety Depression Drug abuse and dependence Ear infection Surgical History Surgical History History of placement of ear tubes Family History Family History (Updated 03/12/22 @ 14:10 by Monica Licea MA) Other Cervical cancer Epileptic Social History Social History Smoking packs per day: 0.5 Smoking cigarettes per day: 10.0 Years smoked: 6 Smoking pack-years: 3.00 Smoking status: Current every day smoker Tobacco type: cigarettes Substance use: current Substance use type: methamphetamine Other substance usage details: Clean since December 2019 Gender identity (if verbalized by the patient): Female Spiritual care concerns: No Comments At time of signature, agree with nursing past medical, surgical, social and family history. There is no relevant family history pertinent to the presenting complaint Exam Narrative: GENERAL: Well-appearing, well-nourished, and in no acute distress. HEAD: Normocephalica EYES: PERRLA, conjunctivae clear ENT: Nares clear, turbinates edematous and erythematous, clear discharge. Mucous membranes moist.Right TM red, Left TM pearly lenz with dull light reflex bilaterally; no tragal tenderness. Oropharynx erythematous without lesions. Tonsils not enlarged and without exudate, no drooling, no hoarseness, no trismus, uvula midline. NECK: Supple. No lymphadenopathy CHEST: Clear to auscultation, breath sounds equal. No wheezing, rhonchi, rales, or stridor. No respiratory distress, speaks in full sentences. HEART: Regular rate and rhythm. No murmur heard. SKIN: Warm, dry, no rash. NEURO: Alert and oriented x3. PSYCH: Normal mood and affect Course Course Emergency Course: Patient is aware of diagnosis, understands and agrees to treatment plan.? Anticipatory guidance given.? Patient agrees to follow-up as directed and is aware of reasons to seek care at the emergency department. Portions of this record may have been created with voice recognition software Level of Care: Express Care Visit Vital Signs Vital signs: Vital Signs Temperature 37.2 C 03/25/22 15:19 Pulse Rate 88 03/25/22 15:19 Respiratory Rate 20 03/25/22 15:19 Blood Pressure 123/65 03/25/22 15:19 Pulse Oximetry 98 03/25/22 15:19 Oxygen Delivery Room Air 03/25/22 15:19
== END 2022-03-25 16:20 | disposition home or self-care (01) ==
PROVIDERS: Emergency Provider Registered Nurse
DX: H66.91 Otitis media, unspecified, right ear (principal); H61.23 Impacted cerumen, bilateral; F17.210 Nicotine dependence, cigarettes, uncomplicated; F15.90 Other stimulant use, unspecified, uncomplicated
CPT/HCPCS: 69209; 99213; G0463

== ENCOUNTER 2022-09-26 13:56 | Emergency (ER) | payer OTHER, SELFPAY ==
[2022-09-26 14:01] VITALS: BP 104/61; PULSE 87; RESP 16; TEMP 36.8; O2SAT 100
--- NOTE | 2022-09-26 14:02 | ED.URI ---
HPI - URI/Sore Throat General Chief Complaint: Upper Respiratory Infection Stated Complaint: Sinur Congestion Source: patient and RN notes reviewed History of Present Illness HPI Narrative: 22 yo F Presents to urgent care with complaints of sinus congestion and sinus pressure that started one week ago. Pt states she started out with a sore throat which did resolved on it's own. pt states she thought it was just a cold but the sinus pressure continues to worsen. Pt states she had a fever and chills a few days ago but nothing since. Denies any chest pain, SOB, ear pain, abdominal pain, or vomiting. Pt has taken Sudafed with moderate relief. Related Data Home Medications Medication Instructions Recorded Confirmed sertraline 100 mg tablet mg 09/26/22 Allergies Allergy/AdvReac Type Severity Reaction Status Date / Time amoxicillin Allergy Mild Rash Verified 03/25/22 15:36 Penicillins Allergy Mild Rash Verified 07/20/22 08:52 Review of Systems Review of Systems: Pertinent positives and pertinent negatives per HPI. [facility] Past Medical History Medical History (Updated 09/26/22 @ 14:13 by Ariana Williamson APRN) Anxiety Depression Drug abuse and dependence Ear infection Surgical History Surgical History History of placement of ear tubes Family History Family History (Updated 07/20/22 @ 08:56 by Avani Sandoval CMA) Mother Epileptic Cervical cancer Social History Social History Smoking packs per day: 0.5 Smoking cigarettes per day: 10.0 Years smoked: 6 Smoking pack-years: 3.00 Smoking status: Current every day smoker Tobacco type: cigarettes Substance use: current Substance use type: methamphetamine Other substance usage details: Clean since December 2019 Living arrangements: with friend(s) Gender identity (if verbalized by the patient): Female Spiritual care concerns: No Comments At the time of my signature, I reviewed and agree with the nursing past medical, surgical, social, and family history. There is no relevant family history pertinent to the patient complaint. Exam Narrative: GENERAL: This is a well-nourished, well-developed patient, in no apparent distress. HEAD: normocephalic, atraumatic. EYES: Sclera clear/white. Vision is grossly intact. EARS: External ears normal, auditory canals clear and without drainage, TMs normal without perforation. Hearing grossly intact. NOSE: Frontal and maxillary sinus pressure and tenderness. THROAT: Mucous membranes moist, posterior pharynx clear. NECK: Neck supple, non-tender without lymphadenopathy, masses or thyromegaly. CARDIOVASCULAR: Regular rate and rhythm without murmurs, gallops, or rubs. RESPIRATORY: Clear to auscultation. Breath sounds equal bilaterally. No wheezes, rales, or rhonchi. GASTROINTESTINAL: Abdomen soft, non-tender, nondistended. Bowel sounds are active. No hepato-splenomegaly, or palpable masses. No guarding. SKIN: warm, intact with no suspicious lesions or rash, good texture and turgor. NEURO: awake, alert, and oriented to person, place and time. There were no obvious focal neurologic abnormalities. Course Course Level of Care: Express Care Visit Vital Signs Vital signs: Reviewed MDM - URI/Sore Throat MDM Narrative Medical decision making narrative: Go to the ER for any new or worsening symptoms. Avoid smoking/second-hand smoke. Continue to take Tylenol or Motrin for pain. Increase your Vitamin C intake. Use a humidifier or vaporizer at night. Take Medications as prescribed. Drink plenty of water. 8-10 glasses per day. Use flonase 2 times per day for 5 days then as needed Take mucinex 2 times per day and be sure to take with 8oz of water. Follow up with Primary provider if not getting better. Differential Diagnosis Differential diagnosis: Likely upper respiratory infection, sinusit
== END 2022-09-26 14:17 | disposition home or self-care (01) ==
PROVIDERS: Emergency Provider Nurse Practitioner Family
DX: J01.90 Acute sinusitis, unspecified (principal); F17.210 Nicotine dependence, cigarettes, uncomplicated; F41.9 Anxiety disorder, unspecified; F32.A Depression, unspecified
CPT/HCPCS: 99213; G0463

== ENCOUNTER 2022-10-04 13:56 | Emergency (ER) | payer OTHER, SELFPAY ==
[2022-10-04 14:06] VITALS: BP 102/63; PULSE 89; RESP 16; TEMP 36.7; O2SAT 100
--- NOTE | 2022-10-04 14:21 | ED.URI ---
HPI - URI/Sore Throat General Chief Complaint: Upper Respiratory Infection Stated Complaint: Sore Throat Time Seen by Provider: 10/04/22 14:08 Source: patient Mode of arrival: ambulatory Limitations: no limitations History of Present Illness HPI Narrative: Siri is a 22-year-old female patient presenting to the clinic today with complaints of a sore throat and a runny nose, and some congestion times 2-3 days. She reports she felt feverish last night however she was unable to take her temperature. No known exposure to anyone with COVID, flu, or strep. States that she is currently on amoxicillin for a sinus infection. MD elicited complaint: sore throat and nasal congestion Related Data Home Medications Medication Instructions Recorded Confirmed sertraline 100 mg tablet 100 mg PO DAILY 09/26/22 Allergies Allergy/AdvReac Type Severity Reaction Status Date / Time amoxicillin Allergy Mild Rash Verified 10/04/22 14:03 Penicillins Allergy Mild Rash Verified 10/04/22 14:03 Review of Systems Review of Systems: Pertinent positives per HPI. Patient denies any rash, visual changes, dizziness, shortness of breath, chest pain, palpitations, nausea, vomiting, diarrhea, constipation, abdominal pain, or any urinary issues. [facility] Past Medical History Medical History (Updated 10/04/22 @ 14:23 by Nitesh Rodriguez APRN) Anxiety Depression Drug abuse and dependence Ear infection Surgical History Surgical History History of placement of ear tubes Family History Family History (Updated 07/20/22 @ 08:56 by Avani Sandoval CMA) Mother Epileptic Cervical cancer Social History Social History Smoking packs per day: 0.5 Smoking cigarettes per day: 10.0 Years smoked: 6 Smoking pack-years: 3.00 Smoking status: Current every day smoker Tobacco type: cigarettes Substance use: current Substance use type: methamphetamine Other substance usage details: Clean since December 2019 Living arrangements: with friend(s) Gender identity (if verbalized by the patient): Female Spiritual care concerns: No Comments At the time of my signature, I reviewed and agree with the nursing past medical, surgical, social, and family history. There is no relevant family history pertinent to the patient complaint. Exam Narrative: General: Well-developed, well nourished, in no apparent distress Head: Normocephalic, atraumatic Eyes: Pupils equally round and reactive to light bilaterally, EOM intact, sclera and conjunctive clear, no discharge, lids normal Ears: TMs intact and clear, ear canals clear, no drainage, grossly hearing normal. Nose: Nares patent, no discharge, no inflammation, no sinus tenderness. Mouth: Oropharynx red with mild tonsillar enlargement without lesions or masses, good dentition, MMM. Neck: Supple, trachea midline, mild enlargement of anterior or posterior cervical nodes, no thyroid masses or goiter palpable. Cardio: Regular rate and rhythm, s1 and s2 normal, no murmur appreciated. Resp: Clear to auscultation bilaterally anteriorly and posteriorly, no rhonchi, rales, wheezing or rubs Course Course Emergency Course: Portions of this record may have been created with voice recognition software. Level of Care: Express Care Visit Vital Signs Vital signs: Vital Signs Temperature 36.7 C 10/04/22 14:06 Pulse Rate 89 10/04/22 14:06 Respiratory Rate 16 10/04/22 14:06 Blood Pressure 102/63 10/04/22 14:06 Pulse Oximetry 100 10/04/22 14:06 Oxygen Delivery Room Air 10/04/22 14:06 Temperature 36.7 C 10/04/22 14:06 Pulse Rate 89 10/04/22 14:06 Respiratory Rate 16 10/04/22 14:06 Blood Pressure 102/63 10/04/22 14:06 Pulse Oximetry 100 10/04/22 14:06 Oxygen Delivery Room Air 10/04/22 14:06 Vital signs reviewed MDM - URI/Sore Throat
== END 2022-10-04 14:36 | disposition home or self-care (01) ==
PROVIDERS: Emergency Provider Nurse Practitioner Family
DX: J02.9 Acute pharyngitis, unspecified (principal); B34.9 Viral infection, unspecified; F17.210 Nicotine dependence, cigarettes, uncomplicated; F41.9 Anxiety disorder, unspecified; F32.A Depression, unspecified
CPT/HCPCS: 87081; 87880; 99213; G0463

== ENCOUNTER 2022-10-26 09:25 | Emergency (ER) | payer OTHER, SELFPAY ==
[2022-10-26 09:32] VITALS: BP 103/58; PULSE 69; RESP 16; TEMP 36.6; O2SAT 100
--- NOTE | 2022-10-26 10:02 | ED.EAR ---
HPI - Ear Problem General Chief complaint: Ear Stated complaint: Ear pain Time Seen by Provider: 10/26/22 09:50 Source: patient, RN notes reviewed and old records reviewed Mode of arrival: ambulatory Limitations: no limitations History of Present Illness HPI Narrative: 22-year-old female who presents to [facility] with complaints of pain to her right ear which started at 0100 this morning when pain in her ear awoke her. Patient reports that she took some Ibuprofen for her pain so she could go back to sleep. Patient reports that she has not had a fever, sore throat or any sinus congestion. Patient reports history of previous ear infections and ear tubes, Patient reports no drainage from her ears or any change in her hearing or tinnitus. MD Complaint: ear pain Location: right ear Duration: constant Severity: moderate Discharge from ear: Reports no Treatment prior to arrival: oral analgesic Related Data Allergies Allergy/AdvReac Type Severity Reaction Status Date / Time amoxicillin Allergy Mild Rash Verified 10/04/22 14:03 Penicillins Allergy Mild Rash Verified 10/04/22 14:03 Review of Systems Review of Systems: CONSTITUTIONAL: Denies malaise, chills, sweats, or fever. EYES: Denies visual changes, redness, or discharge. ENT: Reports no rhinorrhea, congestion, sinus pain,positive for right otalgia, no sore throat. CARDIOVASCULAR: Denies chest pain, palpitations, or edema. RESPIRATORY: Reports no cough.? Denies dyspnea. GASTROINTESTINAL: Denies abdominal pain, nausea, vomiting, diarrhea SKIN: Denies rash or itching. MUSCULOSKELETAL: Denies myalgia. NEUROLOGIC: Denies headache. All systems reviewed & are unremarkable except as noted in HPI and below PMFSH Past Medical History Medical History Anxiety Depression Drug abuse and dependence Ear infection Surgical History Surgical History History of placement of ear tubes Family History Family History Mother Epileptic Cervical cancer Social History Social History Smoking packs per day: 0.5 Smoking cigarettes per day: 10.0 Years smoked: 6 Smoking pack-years: 3.00 Smoking status: Current every day smoker Tobacco type: cigarettes Substance use: current Substance use type: methamphetamine Other substance usage details: Clean since December 2019 Living arrangements: with friend(s) Gender identity (if verbalized by the patient): Female Spiritual care concerns: No Comments At time of signature, agree with nursing past medical, surgical, social and family history. There is no relevant family history pertinent to the presenting complaint Exam Narrative: GENERAL: Well-appearing, well-nourished, and in no acute distress. HEAD: Normocephalic EYES: PERRLA, conjunctivae clear ENT: Nares clear, turbinates edematous and erythematous, clear discharge. Mucous membranes moist.Right TM red and bulging, Left TM pearly lenz with dull light reflex bilaterally; no tragal tenderness. Oropharynx erythematous without lesions. Tonsils not enlarged and without exudate, no drooling, no hoarseness, no trismus, uvula midline. NECK: Supple. No lymphadenopathy CHEST: Clear to auscultation, breath sounds equal. No wheezing, rhonchi, rales, or stridor. No respiratory distress, speaks in full sentences.SAO2 100% on room air HEART: Regular rate and rhythm. No murmur heard. SKIN: Warm, dry, no rash. NEURO: Alert and oriented x3. PSYCH: Normal mood and affect Course Course Emergency Course: Patient is aware of diagnosis, understands and agrees to treatment plan.? Anticipatory guidance given.? Patient agrees to follow-up as directed and is aware of reasons to seek care at the emergency department. Portions of this rec
== END 2022-10-26 10:14 | disposition home or self-care (01) ==
PROVIDERS: Emergency Provider Registered Nurse
DX: H66.91 Otitis media, unspecified, right ear (principal)
CPT/HCPCS: 99213; G0463

== ENCOUNTER 2023-03-26 13:46 | Emergency (ER) | payer OTHER, SELFPAY ==
[2023-03-26 14:06] VITALS: BP 94/57; PULSE 92; RESP 18; TEMP 37.1; O2SAT 96
--- NOTE | 2023-03-26 15:10 | ED.EAR ---
HPI - Ear Problem General Chief complaint: Ear Stated complaint: Right Ear Pain Time Seen by Provider: 03/26/23 15:10 Source: patient, RN notes reviewed and old records reviewed Mode of arrival: ambulatory Limitations: no limitations History of Present Illness HPI Narrative: 22-year-old female who presents to [facility] with complaints of right ear pain for the past 3 days with feeling like fluid in her ear and hearing is muffled. Patient has history of past ear infections. She has been taking Ibuprofen for her discomfort. MD Complaint: ear pain Location: right ear Duration: constant Severity: mild Discharge from ear: Reports no Associated symptoms ear: decreased hearing and other (feeling like fluid in ear) Treatment prior to arrival: oral analgesic (Ibuprofen) Related Data Home Medications Medication Instructions Recorded Confirmed levonorgestrel 21 mcg/24 hours (8 1 device intrauterine ONCE 03/26/23 03/26/23 yrs) 52 mg intrauterine device (Mirena) sertraline 100 mg tablet 100 mg PO DAILY 03/26/23 03/26/23 Allergies Allergy/AdvReac Type Severity Reaction Status Date / Time No Known Allergies Allergy Verified 03/26/23 14:23 Review of Systems Review of Systems: CONSTITUTIONAL: Denies malaise, chills, sweats, or fever. EYES: Denies visual changes, redness, or discharge. ENT: Reports rhinorrhea, congestion, no sinus pain, right otalgia and no sore throat. CARDIOVASCULAR: Denies chest pain, palpitations, or edema. RESPIRATORY: Reports no cough.? Denies dyspnea. GASTROINTESTINAL: Denies abdominal pain, nausea, vomiting, diarrhea SKIN: Denies rash or itching. MUSCULOSKELETAL: Denies myalgia. NEUROLOGIC: Denies headache. All systems reviewed & are unremarkable except as noted in HPI and below PMFSH Past Medical History Medical History (Updated 03/28/23 @ 15:25 by Halina Queen NP) Anxiety Depression Drug abuse and dependence clean since December 2019 Ear infection Surgical History Surgical History History of placement of ear tubes Family History Family History Mother Epileptic Cervical cancer Social History Social History (Updated 03/28/23 @ 15:25 by Halina Queen NP) Smoking packs per day: 0.5 Smoking cigarettes per day: 10.0 Years smoked: 6 Smoking pack-years: 3.00 Smoking status: Current every day smoker Tobacco type: cigarettes and e-cigarettes/vaping Substance use: current Substance use type: methamphetamine Other substance usage details: Clean since December 2019 Living arrangements: with friend(s) Gender identity (if verbalized by the patient): Female Spiritual care concerns: No Comments At time of signature, agree with nursing past medical, surgical, social and family history. There is no relevant family history pertinent to the presenting complaint Exam Narrative: GENERAL: Well-appearing, well-nourished, and in no acute distress. HEAD: Normocephalic EYES: PERRLA, conjunctivae clear ENT: Nares clear, turbinates edematous and erythematous, clear discharge. Mucous membranes moist.Right TM red and bulging no drainage noted, Left TM pearly lenz with dull light reflex bilaterally; no tragal tenderness. Oropharynx erythematous without lesions. Tonsils not enlarged and without exudate, no drooling, no hoarseness, no trismus, uvula midline. NECK: Supple. No lymphadenopathy CHEST: Clear to auscultation, breath sounds equal. No wheezing, rhonchi, rales, or stridor. No respiratory distress, speaks in full sentences.SAO2 96% on room air HEART: Regular rate and rhythm. No murmur heard. SKIN: Warm, dry, no rash. NEURO: Alert and oriented x3. PSYCH: Normal mood and affect Course Course Emergency Course: Patient is aware of diagnosis, understands and agrees to treatment plan.? Anticipatory guidance
== END 2023-03-26 15:21 | disposition home or self-care (01) ==
PROVIDERS: Emergency Provider Registered Nurse
DX: H65.01 Acute serous otitis media, right ear (principal); F41.9 Anxiety disorder, unspecified; F32.A Depression, unspecified; F17.210 Nicotine dependence, cigarettes, uncomplicated; Z79.899 Other long term (current) drug therapy
CPT/HCPCS: 99213; G0463

== ENCOUNTER 2023-06-18 08:38 | Emergency (ER) | payer OTHER, SELFPAY ==
[2023-06-18 08:49] VITALS: BP 108/62; PULSE 97; RESP 18; TEMP 36.9; O2SAT 99
--- NOTE | 2023-06-18 09:24 | ED.GENADULT ---
HPI - General Adult General Chief complaint: Skin/Abscess/Foreign Body Stated complaint: Swollen lip Time Seen by Provider: 06/18/23 09:24 Source: patient, RN notes reviewed and old records reviewed Mode of arrival: ambulatory Limitations: no limitations History of Present Illness HPI narrative: 22-year-old female to [facility] with lower right lip lesion, swelling and pain x3 days. Patient endorses treatment at home with Abreva without relief. Patient able to control secretions, patient able to tolerate fluids by mouth. Related Data Home Medications Medication Instructions Recorded Confirmed levonorgestrel 21 mcg/24 hours (8 1 device intrauterine ONCE 03/26/23 06/18/23 yrs) 52 mg intrauterine device (Mirena) sertraline 100 mg tablet 100 mg PO DAILY 03/26/23 06/18/23 Allergies Allergy/AdvReac Type Severity Reaction Status Date / Time No Known Allergies Allergy Verified 06/18/23 09:30 Review of Systems Review of Systems: All systems reviewed & are unremarkable except as noted in HPI and below Constitutional: Constitutional: Reports no additional constitutional complaints Eyes: Eyes: Reports no additional eye complaints ENT: Reports as per HPI and Reports mouth lesions (pain, swelling per pt) Cardiovascular: Cardiovascular: Reports no additional cardiovascular complaints, Denies chest pain and Denies dyspnea Respiratory: Respiratory: Reports no additional respiratory complaints, Denies cough and Denies dyspnea Musculoskeletal: Musculoskeletal: Reports no additional musculoskeletal complaints Integumentary/Breasts: Skin/Breast: Reports lesions (oral; right lower lip) Neurologic: Reports system reviewed and no additional complaints, except as documented Psychiatric: Psychiatric: Reports no additional psychiatric complaints [facility] Past Medical History Medical History Anxiety Depression Drug abuse and dependence clean since December 2019 Ear infection Surgical History Surgical History History of placement of ear tubes Family History Family History Mother Epileptic Cervical cancer Social History Social History Smoking packs per day: 0.5 Smoking cigarettes per day: 10.0 Years smoked: 6 Smoking pack-years: 3.00 Smoking status: Current every day smoker Tobacco type: cigarettes and e-cigarettes/vaping Substance use: current Substance use type: methamphetamine Other substance usage details: Clean since December 2019 Living arrangements: with friend(s) Gender identity (if verbalized by the patient): Female Spiritual care concerns: No Comments At the time of my signature, I reviewed and agree with the nursing past medical, surgical, social, and family history. There is no relevant family history pertinent to the patient complaint. Exam Const: General: cooperative, healthy appearing, comfortable, no acute distress, alert and well nourished Nutritional Appearance: well nourished Orientation/consciousness: patient oriented x3 Limitations: no limitations HENMT: Head: normal to inspection Ears: external ears normal Face/Nose/Sinus: Normal external nose present, Normal nares present, normal facial exam, No erythema and No edema Face and sinus: normal facial exam, no erythema and no edema Mouth: Yes tongue normal, Yes moist mucous membranes, No drooling, Yes lip abnormal and Yes other (oral lesion, right lower lip) Eyes: General: appearance normal, both eyes and all related structures Neck: Neck: normal visual inspection, full ROM and no meningeal signs Lymphatic: no lymphadenopathy noted and no lymphedema noted Chest: Chest palpation & inspection: normal inspection of the chest Resp: Effort & Inspection: normal respiratory
== END 2023-06-18 09:45 | disposition home or self-care (01) ==
PROVIDERS: Emergency Provider Nurse Practitioner Family
DX: B00.1 Herpesviral vesicular dermatitis (principal); F17.210 Nicotine dependence, cigarettes, uncomplicated; F17.290 Nicotine dependence, other tobacco product, uncomplicated; F41.9 Anxiety disorder, unspecified; F32.A Depression, unspecified
CPT/HCPCS: 99213; G0463

== ENCOUNTER 2023-07-13 15:24 | Emergency (ER) | payer OTHER, SELFPAY ==
[2023-07-13 15:28] VITALS: BP 100/65; PULSE 62; RESP 20; TEMP 37.1; O2SAT 100
--- NOTE | 2023-07-13 15:35 | ED_ITS ---
HPI - General Adult General Chief complaint: Skin/Abscess/Foreign Body Stated complaint: herpes Source: patient, RN notes reviewed and old records reviewed Mode of arrival: ambulatory Limitations: no limitations History of Present Illness HPI narrative: 22-year-old patient presents with complaint herpes simplex 1 on labs patient states generally takes acyclovir that helps but states that is not how. Patient denies any new sores but states is still having issues from last treatment. Related Data Home Medications Medication Instructions Recorded Confirmed levonorgestrel 21 mcg/24 hours (8 1 device intrauterine ONCE 03/26/23 06/18/23 yrs) 52 mg intrauterine device (Mirena) sertraline 100 mg tablet 100 mg PO DAILY 03/26/23 06/18/23 Allergies Allergy/AdvReac Type Severity Reaction Status Date / Time No Known Allergies Allergy Verified 06/18/23 09:30 Review of Systems Constitutional: Constitutional: Reports no additional constitutional complaints, Denies body ache(s), Denies chills, Denies fatigue, Denies fever(s) and Denies headache(s) Eyes: Eyes: Reports no additional eye complaints and Denies blurry vision ENT: Reports system reviewed and no additional complaints, except as documented, Reports as per HPI, Denies vertigo, Denies dizziness, Denies ear discharge, Denies otalgia, Denies facial pain, Denies headache(s), Denies nasal congestion, Denies nasal discharge, Denies sinus pain, Denies sinus pressure and Denies sore throat Comments: Mouth lesion Cardiovascular: Cardiovascular: Reports no additional cardiovascular complaints, Denies chest pain, Denies chest pain at rest, Denies rapid heart rate and Denies dyspnea Respiratory: Respiratory: Reports no additional respiratory complaints, Denies chest congestion, Denies cough, Denies pain on inspiration, Denies pain with cough and Denies dyspnea Gastrointestinal: Gastrointestinal: Denies abdominal pain, Denies diarrhea, Denies nausea and Denies vomiting Integumentary/Breasts: Skin/Breast: Denies rash Neurologic: Reports system reviewed and no additional complaints, except as documented, Denies vertigo, Denies dizziness and Denies headache(s) Endocrine: Endocrine: Denies fatigue PMFSH Past Medical History Medical History Anxiety Depression Drug abuse and dependence clean since December 2019 Ear infection Surgical History Surgical History History of placement of ear tubes Family History Family History Mother Epileptic Cervical cancer Social History Social History Smoking packs per day: 0.5 Smoking cigarettes per day: 10.0 Years smoked: 6 Smoking pack-years: 3.00 Smoking status: Current every day smoker Tobacco type: cigarettes and e-cigarettes/vaping Substance use: current Substance use type: methamphetamine Other substance usage details: Clean since December 2019 Living arrangements: with friend(s) Gender identity (if verbalized by the patient): Female Spiritual care concerns: No Comments At the time of my signature, I reviewed and agree with the nursing past medical, surgical, social, and family history. There is no relevant family history pertinent to the patient complaint. Exam Const: General: cooperative, healthy appearing, no acute distress and well nourished Nutritional Appearance: well nourished Orientati on/consciousness: patient oriented x3 Limitations: no limitations HENMT: Head: normal to inspection and normocephalic Ears: external ears normal, TM's normal bilaterally, mastoids normal and Abnormal EAC present Face/Nose/Sinus: normal facial exam Face and sinus: normal facial exam Mouth: Yes Normal oral and palatal mucosa present, No lip normal, Yes oropharynx normal and Yes moist mucous membranes Throat: tonsils normal, uvula midline and no uvular edema Other: vesicle noted to right side oflip Eyes: General: appearance normal, both eyes and all related structures Sclera: sclerae normal Pupils: Equal, round and reactive pupils present Resp: Effort & Inspection: normal respiratory effort, able to speak in complete sentences, no audible wheezes, no cough, no respiratory distress and no retractions Auscultation: clear to auscultation bilaterally, no crackles, no rales, no rhonchi and no wheezes Cardio: Rate: regular rate Rhythm: regular rhythm Skin: General skin exam: normal color and no rashes or lesions noted Neuro: General: patient oriented x3 Cranial nerves: Yes Equal, round and reactive pupils present Psych: Appearance: grossly normal Mental Status: mental status grossly normal Speech and movement: Normal speech and movement present Affect: normal affect Course Course Emergency Course: Patient is aware of diagnosis, understands and agrees to treatment plan.? Anticipatory guidance given.? Patient agrees to follow-up as directed and is aware of reasons to seek care at the emergency department. Some parts of this dictation were generated by voice recognition software and may contain typographical and/or grammatical inaccuracies. Level of Care: Express Care Visit Vital Signs Vital signs: Reviewed Medical Decision Making MDM Narrative Medical decision making narrative: patient here for herpes simplex 1 to right of mouth. Patient already had acyclovir that does help but states needs med refill. Patient resting comfortably without signs or symptoms of acute distress, nontoxic appearing, vital signs stable. patient appropriate for discharge home and outpatient care, with instructions on close monitoring, close follow-up, and when to seek emergency care. Discharge instructions reviewed with patient, as well as provided in writing per nursing staff. The instructions also include specific and strict return/GO TO THE ER as well as f/u information. All questions have been answered, and the patient deny any further questions w ith discharge and discharge plan. Differential Diagnosis Differential Diagnosis: Herpes simplex 1, impetigo, cellulitis Medical Records Medical records reviewed: Yes I reviewed the external patient's medical records. Vital Signs Vital Signs: reviewed Lab Data Lab results reviewed: Yes I reviewed the patient's lab results. Discharge Plan Discharge Clinical Impression: Herpes simplex Patient Disposition: Home, Self-Care Condition: Stable Instructions: Oral Herpes Infection (ED) Additional Instructions: Medication as directed. Keep lips moist Tylenol ibuprofen for pain Follow-up with your primary care physician in 5-7 days Go to the ER for any worsening or concerning symptoms Patient Language: Yoruba Prescriptions: New acyclovir 400 mg tablet 400 mg PO TID 7 Days Qty: 21 0RF No Action sertraline 100 mg tablet 100 mg PO DAILY Mirena 21 mcg/24 hours (8 yrs) 52 mg Intrauterine Device 1 device INTRAUTERINE ONCE Rx Instructions: as a single dose acyclovir 400 mg tablet 400 mg PO TID 7 Days Qty: 21 0RF Follow-up/Referrals: PHYSICIAN,HEEL STIFFENER [Primary Care Provider] - Time of Disposition: 15:38
== END 2023-07-13 15:42 | disposition home or self-care (01) ==
PROVIDERS: Emergency Provider Registered Nurse
DX: B00.9 Herpesviral infection, unspecified (principal); F17.210 Nicotine dependence, cigarettes, uncomplicated; F17.290 Nicotine dependence, other tobacco product, uncomplicated; F41.9 Anxiety disorder, unspecified; F32.A Depression, unspecified
CPT/HCPCS: 99213; G0463

== ENCOUNTER 2023-11-22 08:00 | Emergency (ER) | payer OTHER, SELFPAY ==
[2023-11-22 08:06] VITALS: BP 95/60; PULSE 84; RESP 16; TEMP 36.9; O2SAT 97
--- NOTE | 2023-11-22 08:07 | ED.URI ---
HPI - URI/Sore Throat General Chief Complaint: Upper Respiratory Infection Stated Complaint: sore throat Source: patient, RN notes reviewed and old records reviewed Mode of arrival: ambulatory Limitations: no limitations History of Present Illness HPI Narrative: 23 year old female who presents to [facility] care with complaints of sore throat since yesterday with no known fevers. Patient reports that she had flu like symptoms 2 weeks ago and other people in family were ill but everyone had recovered till she started with sore throat yesterday. Patient denies any known fevers chills or sweats, shilpa nasal drainage but no ear pain or cough noted. Patient reports that she took some Ibuprofen for her discomfort. MD elicited complaint: sore throat Onset (ago): day(s) (since yesterday) Severity: moderate Description of mucous: clear Able to tolerate fluids by mouth: Yes Treatments prior to arrival: ibuprofen Related Data Home Medications Medication Instructions Recorded Confirmed levonorgestrel 21 mcg/24 hr (up to 1 device intrauterine ONCE 03/26/23 11/22/23 8 years) 52 mg intrauterine device (Mirena) sertraline 100 mg tablet 100 mg PO DAILY 03/26/23 11/22/23 Allergies Allergy/AdvReac Type Severity Reaction Status Date / Time No Known Allergies Allergy Verified 11/22/23 08:14 Review of Systems Review of Systems: CONSTITUTIONAL: Denies malaise, chills, sweats, or fever. EYES: Denies visual changes, redness, or discharge. ENT: Reports rhinorrhea, congestion, no sinus pain,no otalgia and positive for sore throat. CARDIOVASCULAR: Denies chest pain, palpitations, or edema. RESPIRATORY: Reports no cough.? Denies dyspnea. GASTROINTESTINAL: Denies abdominal pain, nausea, vomiting, diarrhea SKIN: Denies rash or itching. MUSCULOSKELETAL: Denies myalgia. NEUROLOGIC: Denies headache. All systems reviewed & are unremarkable except as noted in HPI and below PMFSH Past Medical History Medical History Anxiety Depression Drug abuse and dependence clean since December 2019 Ear infection Surgical History Surgical History History of placement of ear tubes Family History Family History Mother Epileptic Cervical cancer Social History Social History Smoking packs per day: 0.5 Smoking cigarettes per day: 10.0 Years smoked: 6 Smoking pack-years: 3.00 Smoking status: Current every day smoker Tobacco type: cigarettes and e-cigarettes/vaping Substance use type: methamphetamine Other substance usage details: Clean since December 2019 Living arrangements: with friend(s) Gender identity (if verbalized by the patient): Female Spiritual care concerns: No Comments At time of signature, agree with nursing past medical, surgical, social and family history. There is no relevant family history pertinent to the presenting complaint Exam Narrative: GENERAL: Well-appearing, well-nourished, and in no acute distress. HEAD: Normocephalic EYES: PERRLA, conjunctivae clear ENT: Nares clear, turbinates edematous and erythematous, clear discharge. Mucous membranes moist. TM pearly lenz with dull light reflex bilaterally; no tragal tenderness. Oropharynx erythematous without lesions. Tonsils red enlarged and with white exudates, no drooling, no hoarseness, no trismus, uvula midline. some post nasal discharge NECK: Supple. positive for lymphadenopathy CHEST: Clear to auscultation, breath sounds equal. No wheezing, rhonchi, rales, or stridor. No respiratory distress, speaks in full sentences. no cough noted SAO2 97% on room air HEART: Regular rate and rhythm. No murmur heard. SKIN: Warm, dry, no rash. NEURO: Alert and oriented x3. PSYCH: Normal mood and affect Course
[2023-11-22 08:36] LABS: EDSTREPNEGPOS1 Positive
== END 2023-11-22 08:35 | disposition home or self-care (01) ==
PROVIDERS: Emergency Provider Registered Nurse
DX: J02.0 Streptococcal pharyngitis (principal); F17.210 Nicotine dependence, cigarettes, uncomplicated; F17.290 Nicotine dependence, other tobacco product, uncomplicated; F41.9 Anxiety disorder, unspecified; F32.A Depression, unspecified
CPT/HCPCS: 87880; 99213; G0463